=== PATIENT | female | born 1980 | race African-American/Black ===

== ENCOUNTER 2018-04-12 09:32 | Day surgery (SDC) | payer BC ==
[2018-04-11 14:39] VITALS: BMI 51.5
[~2018-04-12 09:32] MED LIST: Lidocaine 1% PF 5 ML VIAL ONE; PROPOFOL 200 MG/20 ML VIAL ONE
[2018-04-12 10:37] LABS: BHCG - Serum Negative (NEGATIVE); Pregs Control Background? CLEAR/WHITE (CLR/WHITE); Pregs Control Bar Appear? YES (CONTROL BAR)
--- NOTE | 2018-04-12 16:10 | OP ---
DATE OF PROCEDURE: 01/13/2018 TITLE OF PROCEDURE: Colonoscopy. PREPROCEDURE DIAGNOSES: 1. Recent alteration in bowel habits. 2. Possible gastrointestinal bleeding. POSTOPERATIVE DIAGNOSES: 1. Exam to cecum; good bowel preparation. 2. Diffusely tortuous colon. 3. No polyp, diverticulum or vascular ectasia identified. 4. Small internal hemorrhoids. 5. Otherwise normal colonoscopy. PROCEDURE IN DETAIL: Written informed consent was obtained. The patient was brought to the endoscop y suite. Total intravenous anesthesia was administered by Dr. Tom Rooney and associates. The patien t was placed in the left lateral decubitus position. A digital rectal exam was performed that was un remarkable. A Pentax video colonoscope was inserted through the anal canal and advanced under direct visualization to the cecum. Position in the cecum was verified by clear identification of the appen diceal orifice and the ileocecal valve. The quality of the bowel preparation was good. Each colon s egment was examined carefully as the colonoscope was slowly withdrawn from the cecum. Vascular patte rn and haustral folds appeared normal. No vascular ectasia or ulcer was identified. There was no ev idence of active bleeding. No polyps were seen. A retroflexed view in the rectum demonstrated small internal hemorrhoids. The colon was decompressed as the colonoscope was removed from the patient. She was transferred to the day stay surgery area for post-procedure monitoring. There were no immedi ate complications. RECOMMENDATIONS: 1. High-fiber diet. 2. Resume previous medications. 3. Will speak to the patient about either starting MiraLax daily or Linzess 290 mcg daily. 4. Follow up with me in the office in 1 month.
== END 2018-04-12 13:24 | disposition home or self-care (01) ==
LOC: SDC 09:32
PROVIDERS: ATTEND Internal Medicine Gastroenterology
PROC: 0DJD8ZZ Inspection of Lower Intestinal Tract, Via Natural or Artificial Opening Endoscopic (ICD-10-PCS; principal; 2018-04-12)
DX: R19.4 Change in bowel habit (principal); Q43.8 Other specified congenital malformations of intestine; K64.8 Other hemorrhoids; E07.9 Disorder of thyroid, unspecified; Z91.09 Other allergy status, other than to drugs and biological substances
CPT/HCPCS: 84703; J2001; J2704

== ENCOUNTER 2018-10-19 09:34 | Outpatient (CLI) | payer BC ==
--- NOTE | 2018-10-19 11:54 | ULT ---
THYROID ULTRASOUND: History: Follow up examination and re-evaluation of the thyroid nodules. Comparison: 04-22-17 FINDINGS: Real-time imaging of the right and left lobes of the thyroid gland were performed. Right lobe measure s 1.9 x 2 x 5 cm, the left lobe 1.8 x 2.2 x 4.9 cm. Several small subcentimeter left lobe thyroid nod ules are noted. A circumscribed 1.5 x 2.9 cm lower pole right lobe thyroid nodule is identified. I do not believe that this is substantially changed in size given the slight differences in measuring del hnique. Reproducing the way the measurements are on today's examination as compared to the prior exam ination, 1.6 x 2.7 cm measurement on the prior exam and I do not feel that this is appreciably change d. IMPRESSION: Stable exam. POS: WILLIE
== END 2018-10-19 09:35 | disposition home or self-care (01) ==
LOC: SCSULT 09:34
PROVIDERS: ATTEND Specialist
DX: E04.1 Nontoxic single thyroid nodule (principal)
CPT/HCPCS: 76536

== ENCOUNTER 2018-10-20 10:11 | Outpatient (CLI) | payer BC ==
--- NOTE | 2018-10-20 11:47 | RAD ---
BIPHASIC ESOPHAGRAM: HISTORY: Dysphagia. FINDINGS: Swallowing was grossly normal. There is unobstructed flow of contrast to the esophagus and into the stomach. No stricture, mass, or diverticulum is seen. A 12 mm barium tablet passed promptly from th e esophagus into the stomach. There is no spontaneous or Valsalva-induced GE reflux. IMPRESSION: Normal exam. POS: WILLIE
== END 2018-10-20 10:12 | disposition home or self-care (01) ==
LOC: RAD 10:11
PROVIDERS: ATTEND Internal Medicine Gastroenterology
DX: R13.10 Dysphagia, unspecified (principal); R14.2 Eructation; K30 Functional dyspepsia; K59.00 Constipation, unspecified; E04.9 Nontoxic goiter, unspecified
CPT/HCPCS: 74220

== ENCOUNTER 2019-12-11 10:07 | Outpatient (CLI) | payer BC ==
--- NOTE | 2019-12-11 12:10 | ULT ---
Thyroid ultrasound: 12/11/2019 COMPARISON: 10/19/2018 HISTORY: Thyroid nodule/goiter TECHNIQUE: Multiplanar grayscale sonographic imaging of the thyroid gland obtained. FINDINGS: Thyroid isthmus measures 6 mm in AP dimension. There is a solid homogeneous isoechoic nodule within the midportion of the right lobe of the thyroid gland measuring up to approximately 2.6 x 1.3 x 2.7 cm, which has decreased slightly in size when compared to the prior examination at which time it measured 2.7 x 2.9 x 1.5 cm. No new nodule is note d on the right. No discrete nodules appreciated within the thyroid isthmus. There is a solid isoechoic nodule within the left thyroid lobe superiorly measuring 1.2 x 0.8 x 0.8 c m, not significantly changed when compared to the prior examination. Scattered subcentimeter hypoechoic nodules are also noted within the left lobe of the thyroid gland, stable and not significa ntly changed, measuring up to 8 mm. IMPRESSION: Stable bilateral thyroid nodules. No new nodule or interval growth of thyroid nodules. Of note, the patient underwent a fine-needle aspiration of the dominant right thyroid nodule 06/04/2014. TI-RADS 2-not suspicious.
== END 2019-12-11 10:08 | disposition home or self-care (01) ==
LOC: BICULT 10:07
PROVIDERS: ATTEND Otolaryngology Plastic Surgery within the Head & Neck
DX: E04.2 Nontoxic multinodular goiter (principal)
CPT/HCPCS: 76536

== ENCOUNTER 2020-08-09 06:03 | Outpatient (CLI) | payer BC, OTHER ==
[2020-08-09 18:02] LABS: #Basophils 0.1 thou/uL (0.0-0.2); #Eosinphils 0.3 thou/uL (0.0-0.7); #Lymphocytes 1.9 thou/uL (1.20-3.40); #Monocytes 0.6 thou/uL (0.11-0.59); #Neutrophils 6.2 thou/uL (1.40-6.50); %Basophils 0.8 % (0.0-1.0); %Eosinophils 3.4 % (0.0-10.0); %Lymphocytes 21.1 % (21.0-51.0); %Monocytes 6.2 % (0.0-10.0); %Neutrophils 68.5 % (42.0-75.0); Hemoglobin 12.9 g/dL (12.0-16.0); Mean Corpuscular HGB CONC 31.5 g/dL (32.0-36.0); Mean Corpuscular Hemoglobin 27.9 pg (27.0-31.0); Mean Corpuscular Volume 88.6 fL (78.0-98.0); Mean Platelet Volume 9.7 fL (7.4-10.4); Platelet Count 276 thou/uL (130-400); RBC Distribution Width 13.4 % (11.5-14.5); Red Blood Cell (RBC) Count 4.64 mill/uL (4.20-5.40); White Blood Cell (WBC) Count 9.1 thou/uL (4.8-10.8)
[2020-08-10 14:48] LABS: SARS-CoV-2 MS2 Positive; SARS-CoV-2 N Gene Negative; SARS-CoV-2 S Gene Negative; SARS-CoV-2 by NAA Not Detected (NotDetected); SARS-CoV-2 orf1ab Negative
== END 2020-08-09 06:04 | disposition home or self-care (01) ==
LOC: LABBT 06:03
PROVIDERS: ATTEND Orthopaedic Surgery Hand Surgery
DX: Z01.812 Encounter for preprocedural laboratory examination (principal); Z20.828 Contact with and (suspected) exposure to other viral communicable diseases; R22.31 Localized swelling, mass and lump, right upper limb
CPT/HCPCS: 85025; 87635; U0003

== ENCOUNTER 2020-08-13 09:51 | Day surgery (SDC) | payer BC ==
[2020-08-12 10:51] VITALS: BMI 51.5
[2020-08-13] MEDS ORDERED: Fentanyl 100 MCG/2 ML VIAL ONE (11:44)
[2020-08-13] MEDS ORDERED: Midazolam HCl 2 mg/2 ml Vial ONE (12:07)
[2020-08-13] MEDS ORDERED: Bacitracin Zinc Ointment 30 gm TUBE ONE (12:38)
[2020-08-13] MEDS ORDERED: Sodium Chloride 0.9% 10 ML ONE (12:38)
[2020-08-13] MEDS ORDERED: Betamet Acet/Betamet Na Ph 30 MG/5 ML VIAL ONE (12:52)
[2020-08-13] MEDS ORDERED: Dexamethasone 20 MG/5 ML VIAL ONE (13:44)
[2020-08-13] MEDS ORDERED: PROPOFOL 200 MG/20 ML VIAL ONE (13:44)
[2020-08-13] MEDS ORDERED: Lidocaine 1% PF 5 ML VIAL ONE (13:44)
[2020-08-13] MEDS ORDERED: PHENYLEPHRINE-NS 100 MCG/ML 10 ML SYRINGE ONE (13:44)
[2020-08-13] MEDS ORDERED: Ketorolac Tromethamine 30 MG/ML VIAL ONE (13:45)
--- NOTE | 2020-08-14 13:45 | OP ---
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 PROCEDURES PERFORMED: 1. Excisional biopsy, giant cell tumor (mass, 1.2 x 0.5 cm). 2. Excision of extensor sheath, ulnar aspect of the distal interphalangeal joint, index finger. SPECIMEN SENT: 12 x 5 mm giant cell tumor mass. ESTIMATED BLOOD LOSS: Less than 5 mL. TOURNIQUET TIME: 9 minutes. DESCRIPTION OF PROCEDURE: After successful general endotracheal anesthesia, the limb was prepped and draped. We augmented the anesthesia with total of 20 mL of 0.5% Marcaine metacarpophalangeal block, 10 given before the procedure, and 10 given after the incision was closed. We then outlined a zigzag incision over the mass, which was dorsal and ulnar, beginning just proximal to the distal phalangeal joint. We carried through the skin and subcutaneous tissue and found the mass is growing from the tendon sheath, making an impression on it. It had a connection to the joint capsule, but there was no stalk. The mass was lifted out en block, it was, by default, like a giant cell tumor. We sent it to the lab. We have deflated the tourniquet, obtained hemostasis, and then closed the wound with interrupted 5-0 nylon simple pattern. The patient did leave the operating room without evidence of anesthetic or operative complication. Job ID: [id number]
== END 2020-08-13 15:02 | disposition home or self-care (01) ==
LOC: SDC 09:51
PROVIDERS: ATTEND Orthopaedic Surgery Hand Surgery
PROC: 0LB80ZZ Excision of Left Hand Tendon, Open Approach (ICD-10-PCS; principal; 2020-08-13)
DX: D48.1 Neoplasm of uncertain behavior of connective and other soft tissue (principal); G47.9 Sleep disorder, unspecified; E66.01 Morbid (severe) obesity due to excess calories; Z68.43 Body mass index [BMI] 50.0-59.9, adult
CPT/HCPCS: 88305; J0690; J0702; J1100; J1885; J2250; J2704; J3010; J3490

== ENCOUNTER 2020-11-01 15:13 | Outpatient (CLI) | payer BC ==
--- NOTE | 2020-11-01 15:32 | RAD ---
EXAM: XR Heel Lt 2 View STANDARD DATE: 11/01/2020 3:14 PM INDICATION: Left heel pain for 6 weeks COMPARISON: None. FINDING: There is moderate enthesopathic change off the plantar calcaneus. There is mild enthesopath ic change off the posterior calcaneus. No acute fracture is evident. The visualized subtalar joint appears within normal limits. Soft tissues are normal appearing. IMPRESSION:Plantar and posterior calcaneal enthesophytes as above.
== END 2020-11-01 15:14 | disposition home or self-care (01) ==
LOC: SCSRAD 15:13
PROVIDERS: ATTEND Student in an Organized Health Care Education/Training Program
DX: M79.672 Pain in left foot (principal); M77.9 Enthesopathy, unspecified

== ENCOUNTER 2021-01-16 12:55 | Outpatient (CLI) | payer BC ==
--- NOTE | 2021-01-16 14:25 | ULT ---
EXAM: US Thyroid STANDARD PROVIDED CLINICAL HISTORY: Follow-up thyroid nodules COMPARISON: 12/11/2019 FINDINGS: Right lobe of the thyroid gland measures 5.3 cm x 2.4 cm x 2.4 cm. Dominant slightly heterogeneous but predominantly isoechoic nodule is again seen in the midportion ri ght lobe of the thyroid gland which measures 2.9 cm x 2.2 cm x 1.6 cm and previously measures of 2.9 cm x 2.7 cm x 1.5 cm. Small hypoechoic nodule midportion right lobe of the thyroid gland measuring 0.5 cm not definitively seen on prior exam. Left lobe of the thyroid gland measures 5 cm x 2 cm x 1.8 cm. A heterogeneous nodule is again seen in the superior pole left lobe of thyroid gland measuring 1 cm n ot significantly changed in size compared to the prior exam. A few closely adjacent small less than 5 mm hypoechoic nodules are seen in the inferior left lobe of the thyroid gland unchanged from prior exam. However, this may actually represent a single heterogeneous nodule, but this is a stable finding. IMPRESSION: Stable bilateral thyroid nodules. No new nodule or significant interval growth of nodules are seen in either lobe of the thyroid gland. As noted on prior exam, fine-needle aspiration was obtained of the dominant nodule right lobe of thyroid gland.
== END 2021-01-16 12:56 | disposition home or self-care (01) ==
LOC: BICULT 12:55
PROVIDERS: ATTEND Otolaryngology Plastic Surgery within the Head & Neck
DX: E04.2 Nontoxic multinodular goiter (principal)
CPT/HCPCS: 76536

== ENCOUNTER 2022-02-27 07:36 | Outpatient (CLI) | payer BC | END 2022-02-27 07:37 | disposition home or self-care (01) | LOC: ULT 07:36 | PROVIDERS: ATTEND Otolaryngology Plastic Surgery within the Head & Neck | DX: E04.2 Nontoxic multinodular goiter (principal) | CPT/HCPCS: 76536 ==

== ENCOUNTER 2023-03-17 15:06 | Outpatient (CLI) | payer BC | END 2023-03-17 15:07 | disposition home or self-care (01) | LOC: BICULT 15:06 | PROVIDERS: ATTEND Otolaryngology Plastic Surgery within the Head & Neck | DX: E04.9 Nontoxic goiter, unspecified (principal); E04.1 Nontoxic single thyroid nodule | CPT/HCPCS: 76536 ==

== ENCOUNTER 2024-11-20 14:13 | Outpatient (CLI) | payer BC | END 2024-11-20 14:14 | disposition home or self-care (01) | LOC: ULT 14:13 | PROVIDERS: ATTEND Family Medicine | DX: M79.652 Pain in left thigh (principal) | CPT/HCPCS: 93970 ==

== ENCOUNTER 2025-10-12 15:02 | Outpatient (CLI) | payer BC | END 2025-10-12 15:03 | disposition home or self-care (01) | LOC: ULT 15:02 | PROVIDERS: ATTEND Otolaryngology Plastic Surgery within the Head & Neck | DX: E04.2 Nontoxic multinodular goiter (principal) | CPT/HCPCS: 76536 ==